=== PATIENT | female | born 1955 | race Caucasian/White ===

== ENCOUNTER → 2020-10-28 | Outpatient (CLI) | payer MEDICARE ==
[~2020-10-28] MED LIST: ADULT ASPIRIN R81 MG PO; CARVEDILOL25 MG PO; DANDELION ROOT PO; HYDROCHLOROTHIA25 M1 PO; LIPITOR40 MG PO; LOSARTAN POTAS100 MG PO; MAGNESIUM400 MG PO; OMEPRAZOLE 20 M20 M1 PO; ONZETRA XSAIL11 MG PO; OXYBUTYNIN 5 MG5 M2 PO; REGLAN 10 MG TA10 MG PO; REQUIP3 MG PO; SPIRONOLACTONE25 M1 PO; SUPER THERAVIT1 EACH PO; TRAZODONE HCL100 MG PO; VITAMIN D3125 MC1 PO; ZOLOFT100 MG PO
[2020-10-28 10:31] LABS: ABSOLUTE BASOPHILS 0.1 thou/uL (0.0-0.2); ABSOLUTE EOSINOPHILS 0.2 thou/uL (0.0-0.7); ABSOLUTE LYMPHOCYTES 2.7 thou/uL (0.8-5.3); ABSOLUTE MONOCYTES 0.6 thou/uL (0.0-1.2); ABSOLUTE NEUTROPHILS 4.7 thou/uL (1.6-8.1); BASOPHILS 1.1 %; EOSINOPHILS 2.7 %; HEMATOCRIT 37.4 % (37.0-47.0); HEMOGLOBIN 12.5 gm/dL (12.0-15.0); LYMPHOCYTES 32.9 %; MCH 30.2 pg (26.0-34.0); MCHC 33.4 g/dL (28.0-37.0); MCV 90.4 fL (80.0-100.0); MONOCYTES 6.8 %; MPV 7.6 fl. (7.2-11.1); NUCLEATED RBCS 0 /100WBC; PLATELET COUNT* 294 thou/uL (150-400); POLYS 56.5 %; RBC 4.14 mil/uL (4.20-5.00); RDW-CV 12.2 % (10.5-14.5); WBC 8.2 thou/uL (4.0-11.0)
[2020-10-28 10:32] LABS: URINE BILIRUBIN NEGATIVE (Negative); URINE BLOOD NEGATIVE (Negative); URINE CLARITY CLEAR; URINE COLOR YELLOW; URINE GLUCOSE-RANDOM NEGATIVE (Negative); URINE KETONES NEGATIVE (Negative); URINE LEUKOCYTES-REFLEX 1+ (Negative); URINE NITRITE-REFLEX NEGATIVE (Negative); URINE PROTEIN NEGATIVE (Negative); URINE SPECIFIC GRAVITY 1.015 (1.005-1.030); URINE UROBILINOGEN 0.2 E.U./dl (0.2-1.0)
[2020-10-28 10:39] LABS: CASTS None Seen /LPF (None Seen); CRYSTALS None Seen /LPF (None Seen); MUCUS None Seen strn/LPF (None Seen); SQUAMOUS >10 Many /LPF (0-3); URINE RBC None Seen /HPF (0-2); URINE WBC-REFLEX 0-5 Rare /HPF (0-5)
[2020-10-28 10:46] LABS: PROTIME 10.3 Seconds (9.20-11.50)
[2020-10-28 10:49] LABS: ALBUMIN 3.6 g/dL (3.4-5.0); CALCIUM 9.2 mg/dL (8.5-10.1); CREATININE 0.7 mg/dL (0.6-1.3); POTASSIUM 3.7 mmol/L (3.5-5.1); TOTAL BILIRUBIN 0.3 mg/dL (<0.1-1.0); TOTAL PROTEIN 6.4 g/dL (6.4-8.2)
--- NOTE | 2020-10-28 14:22 | EKG ---
[place] [address] ELECTROCARDIOGRAM REPORT Name: NEVA SWARTZ Room: [facility]#: [id number] Admission: 10/28/20 Attend Phys: Glynn Hodge, Discharge: Date of : 53 Date of Service: 10/28/20 1029 Report #: [id number] THIS REPORT FOR: //name// [facility] Test Date: 2020-10-28 Test Time: 10:29:44 Pat Name: NEVA SWARTZ Department: Room: Gender: Nurse Transplant: : 1955 Requested By: Glynn Hodge Order Number: [id number] Reading MD: Kamron Coyle Measurements Intervals [place] Rate: 61 P: 1 VA: 206 QRS: 5 QRSD: 113 T: 69 QT: 450 QTc: 454 Interpretive Statements Sinus rhythm Abnormal R-wave progression, early transition No previous ECG available for comparison Electronically Signed On 10-28-2020 14:22:12 CDT by Kamron Coyle [email or web address] <ELECTRONICALLY SIGNED> By: Kamron Coyle MD, [facility] 10/28/20 1422 1029 1029 Kamron Coyle MD, FACC /EPI
== END ==
LOC: M.LAB 07:50
PROVIDERS: ATTEND Orthopaedic Surgery
DX: Z01.812 Encounter for preprocedural laboratory examination (principal); Z20.822 Contact with and (suspected) exposure to COVID-19; I49.9 Cardiac arrhythmia, unspecified; Z96.611 Presence of right artificial shoulder joint

== ENCOUNTER 2020-11-04 07:48 | Inpatient (IN) | payer MEDICARE ==
[~2020-11-04] VITALS: Ht 162.6 cm; Wt 106.1 kg
--- NOTE | ~2020-11-04 | OP ---
[address] [address] OPERATIVE REPORT Name: NEVA SWARTZ Room: [address] M.R.#: [id number] Admission: 11/04/20 Attend Phys: Jaylon Cuevas Discharge: Date of : 53 Report #: [id number] THIS REPORT FOR: cc: Arlen Chase MD, Pamela MD Greiner, Robert F. II DO ~ DATE OF SERVICE: 11/04/2020 PREOPERATIVE DIAGNOSES: 1. Right shoulder osteoarthritis with end-stage rotator cuff tear. 2. Right biceps tendon tear. POSTOPERATIVE DIAGNOSES: 1. Right shoulder osteoarthritis with end-stage rotator cuff tear. 2. Right biceps tendon tear. PROCEDURES: Right reverse total shoulder arthroplasty with biceps tenodesis. SURGEON: Glynn Hodge II, DO BROILER CHEF OR COOK: None. ANESTHESIA: Per operative record. ESTIMATED BLOOD LOSS: 50 mL. ANTIBIOTICS: Per operative record. DRAINS: None. COMPLICATIONS: None. CONDITION OF THE PATIENT: Stable to recovery room. DESCRIPTION OF PROCEDURE: The patient was taken to the operative suite, placed supine on the OR table, given appropriate anesthesia. The patient's right shoulder was sterilely prepped and draped in modified beach chair position. All bony prominences were well padded. Surgery began by an anterior deltopectoral incision. This was carried down to the subcutaneous tissues. The shoulder subscapularis was released. The biceps tendon was shown to have a tear of the proximal margin. It was tenodesed to the anterior aspect of the pectoralis muscle. The proximal aspect was resected from the glenoid. The subscapularis was retracted medially and the head was exposed. Proximal guide was then utilized to begin reaming of the humeral head. This was taken up in a sequential fashion up to a size 11. This was left in place and the [facility] [place] [address] OPERATIVE REPORT Name: NEVA SWARTZ Room: [address] [facility]#: [id number] Admission: 11/04/20 Attend Phys: Jaylon Cuevas Discharge: Date of : 53 Report #: [id number] neck cutting alignment guide was aligned and we cut in appropriate fashion. The appropriate portion of the head was removed. This was then broached up to the appropriate size and the broach was left in place. A protective cover was then placed over the humerus and it was retracted posteriorly. Attention was then turned to the glenoid. Excess labrum was removed from around the glenoid as well as rough osteophytes in this area. The alignment guide was then placed for the guide pin for the glenosphere. This was drilled in appropriate fashion through the cortex. This was sized to appropriate size. Reamer was then utilized to ream the glenoid down to punctate bleeding. The glenoid baseplate was then selected with the appropriate center screw and secured into position. Appropriate locking screw was then placed via ____ holes and the eccentric glenosphere was then implanted in position. Attention was then turned back to the humerus. The trial was then performed showing appropriate stability throughout range of motion with the appropriate trials. These trials were removed and ____ were malleted in position on the back table and then malleted into position on the humerus. This was once again reduced in a near anatomic fashion, showing excellent range of motion of the shoulder without evidence of dislocation. Final irrigation was then performed. The subscapularis was reapproximated to the humerus. The deltopectoral incision was closed utilizing a #1 Vicryl in running fashion. Skin was closed with 2-0 Vicryl and a running 3-0 Monocryl with Dermabond and sterile dressing applied. The patient was transported with an abduction sling to recovery room in stable condition. Counts were correct throughout the procedure. By: [id number] Hodge II, DO /nt
[2020-11-04 15:30] VITALS: BP 123/71
--- NOTE | 2020-11-04 19:45 | NUR ---
A&OX 4, PWD. PT CAME TO ROOM 102 AROUND 1530 AFTER SURGERY. C/O RIGHT SHOULDER PAIN AND OXY 5MG GIVEN PO. UP TO COMMODE WITH STAND BY ASSIST. POLAR PACK ON RIGHT SHOULDER. THIGH HIGH TEDS AND SCD'S ON [place] LEGS. CONT. PULSE OX ON X 24 HOURS. PT SATING 97% ON 3L PER NC. PT ABLE TO SLEEP AFTER PAIN MEDICATION GIVEN. HAS 1/2 NS INFUSING AT 75CC/HR LEFT AC IV SITE. WILL CONTINUE TO MONITOR.
[2020-11-04 20:00] VITALS: BP 118/52
[2020-11-04 23:56] VITALS: BP 115/64
[2020-11-05 04:12] VITALS: BP 135/54
[2020-11-05] MEDS ORDERED: XARELTO10 MG PO (06:51)
--- NOTE | 2020-11-05 07:25 | NUR ---
PATIENT SLEPT PART OF THE NIGHT. IV FLUIDS CONTINUE TO INFUSE ORDERED. PATIENT PAIN HAS BEEN POOR CONTROLLED SINCE NERVE BLOCK HAS WORN OFF. IV AND PO PAIN MEDS HAVE BEEN ALTERNATED WITH SOME RELIEF. POLAR PACK IN PLACE TO RIGHT SHOULDER WITH IMMOBILZER IN PLACE. PATIENT COULD DISCHARGE TODAY IF PAIN IS CONTROLLED. WILL CONTINUE TO MONITOR.
[2020-11-05 07:50] VITALS: BP 158/76
[2020-11-05 08:32] VITALS: BP 135/54
--- NOTE | 2020-11-05 12:55 | NUR ---
Pt is A&O. Resides at home alone, Pt plans to have family/friends stay with her post dc. Pt states that she also has supportive neighbors. Pt is normally independent. Pt has a cpap, no other DME. Hx of HH. Hx of SNF at [facility]. Pt had surgery yesterday, plan dc to home today with [facility]. Cm faxed referral and dc orders. Therapies to see prior to dc.
[2020-11-05 16:55] VITALS: BP 105/60
--- NOTE | 2020-11-05 17:49 | NUR ---
PT A&OX4 VSS. PRN HYDROCODONE ADMINISTERED REQUESTED TO ADDRESS C/O SHOULDER PAIN. PT EVALUATED BY THERAPY AND PT AND NOT CLEARED FOR DC TO HOME YET. PT REMAINS CONTINENT OF B/B. PT UP SBA TO BSC. IV TO LAC PATENT, DRESSING C/D/I. POLAR PACK IN PLACE FOR PAIN RELIEF. PT UP TO RECLINER THIS SHIFT. PT RESTS IN BED WITH CALL LIGHT IN REACH, WILL CONTINUE TO MONITOR
[2020-11-05 19:45] VITALS: BP 107/53
[2020-11-05 22:54] VITALS: BP 144/60
[2020-11-06 03:32] VITALS: BP 107/54
--- NOTE | 2020-11-06 05:28 | NUR ---
PT SLEPT WELL AFTER TAKING HS MEDS. R SHOULDER IMMOBILIZER IN PLACE, HAND WARM AND PINK WITH BRISK CAP REFILL. POLAR PACK ON R SHOULDER. LAC IVSL. RECEIVING HYDROCODONE AND OXY IR FOR R SHOULDER PAIN WITH GOOD RESULTS. ANDREA VARGAS BLE, SCD FOOT PUMPS ON OVERNIGHT. R [place]OULD[place] DRSG CDI. UP WITH 1 ASSIST TO BSC TO VOID OVERNIGHT. PT HOPEFUL FOR DISCHARGE HOME TODAY WITH HOME HEALTH. PT OT. AOX4, ABLE TO USE CALL LITE AND MAKE NEEDS KNOWN. NO LABS THIS MORNING.
[2020-11-06 08:45] VITALS: BP 120/61
[2020-11-06 10:37] VITALS: BP 135/54
[2020-11-06 10:52] VITALS: BP 135/54
--- NOTE | 2020-11-06 11:10 | NUR ---
PATIENT DISCHARGED TO HOME WITH HOME HEALTH. DISCHARGE PAPERS REVIEWED AND SIGNED. PRESCRIPTIONS AND INFORMATION SHEETS GIVEN. IV REMOVED. IMMOBILIZER IN PLACE. POLAR PACK PACKED. PATIENT DENIES ANY FURTHER NEEDS. PATIENT TAKEN BY WHEELCAHIR TO EXIT. LEFT WITH BROTHER.
--- NOTE | 2020-11-06 12:30 | NUR ---
Pt discharged home today, updated Andrew at [facility]
== END 2020-11-06 11:10 | disposition home health service (06) | DRG 483 ==
LOC: M.PRE → M.ORTHSURG 08:35 → M.TBA 08:35 → M.PRE 09:11 → M.ORTHSURG 15:26 → M.PRE 17:43 → M.ORTHSURG 11-06 11:10
PROVIDERS: ADMIT Internal Medicine; ATTEND Internal Medicine
PROC: 3E0T3BZ Introduction of Anesthetic Agent into Peripheral Nerves and Plexi, Percutaneous Approach (ICD-10-PCS; principal; 2020-11-04)
PROC: 0RRJ00Z Replacement of Right Shoulder Joint with Reverse Ball and Socket Synthetic Substitute, Open Approach (ICD-10-PCS; principal; 2020-11-04)
DX: M19.011 Primary osteoarthritis, right shoulder (principal); Z68.41 Body mass index [BMI] 40.0-44.9, adult; J98.11 Atelectasis; G89.29 Other chronic pain; Z96.653 Presence of artificial knee joint, bilateral; G47.33 Obstructive sleep apnea (adult) (pediatric); E66.01 Morbid (severe) obesity due to excess calories; M75.101 Unspecified rotator cuff tear or rupture of right shoulder, not specified as traumatic; Z88.1 Allergy status to other antibiotic agents; Z88.5 Allergy status to narcotic agent; Z88.8 Allergy status to other drugs, medicaments and biological substances; Z91.041 Radiographic dye allergy status; Z79.899 Other long term (current) drug therapy; Z87.891 Personal history of nicotine dependence